=== PATIENT | male | born 1990 | race Caucasian/White ===

== ENCOUNTER → 2018-01-27 | Outpatient (CLI) | payer BC ==
--- NOTE | 2018-01-27 16:09 | RAD ---
Examination: MRI of the left knee without contrast HISTORY: History of left knee pain for 3 weeks with flexion, extension. COMPARISON: None available TECHNIQUE: Multiplanar, multisequence MR imaging of the left knee was performed without contrast. FINDINGS: The anterior cruciate ligament, posterior cruciate ligament are intact. The medial meniscus is intact. There is horizontal tear identified in the body of the lateral meniscus extending anteriorly and posteriorly with a tiny multiloculated cystic structure identified within the lateral meniscus best visualized on series 7 image #4 measuring 1 cm probably parameniscal cyst. The horizontal tear extends to the superior articular surface in the posterior horn, best visualized on series 6 image #10. The extensor mechanism is intact. Small knee joint effusion. The medial collateral ligament is intact. The lateral collateral ligament complex including the fibular collateral ligament, biceps femoris tendon, popliteus tendon appear intact. The medial retinaculum, lateral retinaculum appear intact. Minimal superficial fissuring of cartilage identified in the lateral compartment. Mild edema identified in the soft tissue inferior to the knee joint. IMPRESSION: 1. Tear of the lateral meniscus as described above. 2. Small knee joint effusion. 3. Grade 1 chondral malacia lateral compartment. Electronically signed by: Zohaib Rosales MD (01/27/2018 4:06 PM) [id number]
== END | disposition home or self-care (01) ==
LOC: MRI 14:18
DX: S83.282A Other tear of lateral meniscus, current injury, left knee, initial encounter (principal); M25.462 Effusion, left knee; X58.XXXA Exposure to other specified factors, initial encounter; Y93.89 Activity, other specified; Y92.89 Other specified places as the place of occurrence of the external cause; Y99.8 Other external cause status
CPT/HCPCS: 73721